=== PATIENT | female | born 1985 | race Caucasian/White ===

== ENCOUNTER 2024-01-06 16:33 | Emergency (ER) | payer OTHER, SELFPAY ==
[2024-01-06 16:35] VITALS: BP 128/108
--- NOTE | 2024-01-06 18:43 | ED.GENMED ---
History of Present Illness
General
Chief Complaint: Skin Problem
Source: patient
Exam Limitations: none
Time Seen by Provider: 01/06/24 18:28
Travel History
Have you had any contact with someone who has COVID-19?: No
Do you have any symptoms of coronavirus? Fever > 100 degrees, chills, cough, shortness of breath, sore throat, loss of taste or smell, muscle aches, or headache?: No
History of Present Illness
History of Present Illness:
38-year-old female presents complaining of 3 to 4 days worth of worsening redness swelling and pain to the anterior abdominal wall. No associated fevers. She notes chills however. She also notes redness and swelling to the right posterior thigh.
She has a remote history of having an abscess. She was initially seen at the urgent care and sent here for further evaluation. She states since waiting here the abscess on the abdominal wall drain and noticed some pus and blood come out. She
still notes diffuse abdominal pain. No chest pain or shortness of breath. No other complaints at this time
Past History
Past History
ED Past Medical History: Other (Chronic pain management for migraines, Kidney stones); Negative Asthma, HTN, Hypercholesterolemia or NIDDM
ED Past Surgical History: Cholecystectomy, and Orthopedic
Social History
Tobacco: Smoker
Alcohol: Occasional
Personal: Single
Living: with family
Employment: Employed (At [employer])
Family History
Family History: Negative Diabetes, Hypertension or CAD
Phy Exam
Physical Exam
Physical Exam:
General: Well-appearing female no acute respiratory distress
HEENT: Normocephalic atraumatic
Heart: Regular rate and rhythm no murmurs
Lungs: Clear to auscultation bilaterally no wheezes
Abdomen diffusely tender mildly distended there is more localized erythema showings and induration noted just inferior to the umbilicus that spreads laterally about 6 cm in either direction. There is purulent drainage noted from this area.
Skin: Induration noted to the right posterior thigh without fluctuance or drainage
Course
Orders/Labs/Results
Orders:
Orders
01/06/24 18:39
Ketorolac [Toradol] 30 mg IV NOW STA
01/06/24 18:40
Test Result ONCE
01/06/24 18:43
CT Abd/pelvis W Iv Cont Urgent
Comment:
Reason For Exam: abscess in abdominal wall, eval for deeper infecti
01/06/24 18:51
Complete Blood Count/With Diff Urgent
Comprehensive Metabolic Panel Urgent
HCG, Serum Qualitative Screen Urgent
Urinalysis Reflex To Culture Urgent
Date Specimen was Collected: 01/06/24
Time Specimen was Collected: 18:48
Urine Microscopic Reflex Cult Urgent
Urine Culture Urgent
JOSEP Source: U
Specimen Description:
Date Specimen was Collected: 01/06/24
Time Specimen was Collected: 18:48
01/06/24 20:30
Sulfamethox./Trimethoprim Ds [Bactrim Ds 800 mg/160 mg] 1 tablet PO NOW STA
Abnormal Lab Results
01/06/24
18:51
MCH 31.4 H pg
(27.0-31.0)
Absolute Monos (auto) 0.7 H 10^3/uL
(0.1-0.6)
Lymphocytes % 19.8 L %
(20.5-51.1)
Alkaline Phosphatase 135 H U/L
(38-126)
Urine Ketones Trace A
(Negative)
Ur Occult Blood Reflex Trace A
(Negative)
Urine Nitrite (Reflex) Positive A
(Negative)
Leukocyte Esterase Rfl 1+ A
(Negative)
Urine WBC (Reflex) 30-40 A /HPF
(0-5)
Urine Bacteria (Reflex) Many A
(Negative)
01/06/24 18:51
01/06/24 18:51
Vital Signs
Initial and Last Documented VS:
Initial Vital Signs
Temp Pulse Resp BP Pulse Ox
98.1 F 129 20 128/108 99
01/06/24 16:35 01/06/24 16:35 01/06/24 16:35 01/06/24 16:35 01/06/24 16:35
Last Documented Vital Signs
Temp Pulse Resp BP Pulse Ox
98.1 F 109 16 114/82 99
01/06/24 16:35 01/06/24 18:58 01/06/24 18:58 01/06/24 18:58 01/06/24 18:58
MDM/Problems Addressed
Differential Diagnosis Includes:
Abdominal wall abscess. Sent in by urgent care to evaluate for deeper infection. Consider possible fistula or deeper abscess given diffuse abdominal tenderness. Will check labs. CT pending
*Critical Care Note
Total Time (30-74mins, 75-104mins- exclusive of procedures): Not Applicable
Update Note
Update Note:
I was able to express a large amount of purulent fluid from the area of fluctuance inferior to the umbilicus. There is significant purulence followed by just a bloody return however the patient remained tender diffusely about the abdomen.
CT demonstrates edema within the skin but no drainable fluid collection. No deep space infection. Suspect abscess that was drained. Will start on Bactrim. Lab work reviewed and otherwise negative. Question positive UTI on urinalysis however
this will be covered with Bactrim as well
ED Attending Note
-
Portions of this chart may have been created with voice recognition software.� Occasional wrong word or��sound alike� substitutions may have occurred due to the inherent limitations of voice recognition software.
Discharge Plan
Departure
Patient Disposition: Home (Routine Discharge)
Date of Disposition: 01/06/24
Time of Disposition: 20:32
Patient with high blood pressure during this ER visit?: No
Discharge Problem:
Abscess
Instructions: Skin Abscess
Prescriptions:
New
sulfamethoxazole-trimethoprim [Bactrim DS] 800-160 mg tablet
1 tab PO BID Qty: 14 0RF
No Action
Aimovig Autoinjector
140 mg SC
Rx Instructions:
Q28 days
gabapentin 600 mg Tablet
600 mg PO TID
promethazine [Phenergan] 12.5 mg Tablet
12.5 mg PO Q8 PRN (Reason: Nausea)
Lexapro
20 mg PO DAILY
valacyclovir [Valtrex] 500 mg tablet
1,000 mg PO TID 7 Days Qty: 42 0RF
diclofenac sodium 75 mg tablet,delayed release (DR/EC)
75 mg PO BID Qty: 10 0RF
oxycodone-acetaminophen [Percocet] 5-325 mg tablet
1 tab PO Q4HPRN PRN (Reason: pain) Qty: 7 0RF
Referrals:
UNKNOWN - PT DOES,NOT KNOW [Family Provider] -
Activity Restrictions/Additional Instructions:
Continue with warm compresses. Continue with Tylenol and ibuprofen for pain. Use Bactrim as directed. Return for worsening symptoms otherwise follow-up with family doctor
Interventions
Interventions:
*Risk Screen - Suicide Last Done: 01/06/24 19:01
*General Assessment Last Done: 01/06/24 19:01
*Neglect/Abuse Screening Last Done: 01/06/24 19:01
*ED COVID-19 Vaccine History Last Done: 01/06/24 16:35
[2024-01-06] MEDS: TORADOL 30 MG IV (18:55)
[2024-01-06 18:58] VITALS: BP 114/82
[2024-01-06 19:05] LABS: % Basophils 0.6 % (0-2); % Eosinophils 1.6 % (0-6); % Immature Granulocytes 0.3 % (0-0.5); % Lymphocytes 19.8 % (20.5-51.1); % Monocytes 7.7 % (1.7-9.3); Absolute Basophils 0.1 10^3/uL (0-0.2); Absolute Eosinophils 0.2 10^3/uL (0-0.7); Absolute Lymphocytes 1.9 10^3/uL (1.2-3.4); Absolute Monocytes 0.7 10^3/uL (0.1-0.6); Absolute Neutrophils 6.5 10^3/uL (1.4-6.5); Hematocrit 37.8 % (37.0-47.0); Hemoglobin 13.2 g/dL (12.0-16.0); Mean Corp Hgb Conc. 34.9 g/dL (33.0-37.0); Mean Corpuscular Hgb 31.4 pg (27.0-31.0); Nucleated Red Blood Cells % 0 %; Platelet Count 262 10^3/uL (130-400); White Blood Cell Count 9.3 10^3/uL (4.8-10.8)
[2024-01-06 19:14] LABS: Urine Albumin Trace (Neg - Trace); Urine Bilirubin Negative (Negative); Urine Character Slightly Cloudy (Clear); Urine Color Yellow; Urine Glucose Negative (Negative); Urine Ketone Trace (Negative); Urine Leukocyte 1+ (Negative); Urine Nitrite Positive (Negative); Urine Occult Blood Trace (Negative); Urine Specific Gravity 1.025 (<1.030); Urine Urobilinogen Negative (Neg - 1+)
[2024-01-06 19:23] LABS: Urine Bacteria Many (Negative); Urine Red Blood Cell 0-2 /HPF (0-2); Urine White Cell 30-40 /HPF (0-5)
[2024-01-06 19:29] LABS: ALT (SGPT) 26 U/L (0-35); AST (SGOT) 28 U/L (14-36); Albumin 4.3 g/dl (3.5-5.0); Alkaline Phosphatase 135 U/L (38-126); Blood Urea Nitrogen 12 mg/dl (7-17); Calcium 8.9 mg/dl (8.4-10.2); Carbon Dioxide 25 mmol/L (22-30); Chloride 102 mmol/L (98-107); Glucose 80 mg/dl (70-99); Potassium 4.2 mmol/L (3.5-5.1); Sodium 136 mmol/L (135-145); Total Bilirubin 0.7 mg/dl (0.2-1.3); Total Protein 7.3 g/dl (6.3-8.2); eGFR > 60.00
[2024-01-06 19:39] LABS: HCG, Serum Qualitative Screen Negative
[2024-01-06] MEDS: BACTRIM DS 800 MG/160 MG 1 TABLET PO (20:58)
== END 2024-01-06 21:08 | disposition home or self-care (01) ==
LOC: EMR 16:33
PROVIDERS: Physician Assistant; EMERGENCY PHYSICIAN Emergency Medicine
DX: L02.211 Cutaneous abscess of abdominal wall (principal); F17.200 Nicotine dependence, unspecified, uncomplicated
CPT/HCPCS: 99285; 96374; 74177; 80053; 81003; 81015; 84703; 85025; 87077; 87086; 87186; Q9967

== ENCOUNTER → 2024-05-07 09:03 | Outpatient (REF) | payer OTHER, SELFPAY | LOC: PNTC 09:03 | PROVIDERS: ATTENDING PHYSICIAN Obstetrics & Gynecology | DX: O09.522 Supervision of elderly multigravida, second trimester (principal) | CPT/HCPCS: 76805 ==

== ENCOUNTER → 2024-06-04 13:23 | Outpatient (REF) | payer OTHER, SELFPAY | LOC: PNTC 13:23 | PROVIDERS: ATTENDING PHYSICIAN Obstetrics & Gynecology | DX: O09.529 Supervision of elderly multigravida, unspecified trimester (principal) | CPT/HCPCS: 76811 ==

== ENCOUNTER 2024-07-11 10:14 | Emergency (ER) | payer OTHER, SELFPAY ==
[2024-07-11 10:26] VITALS: BP 118/74
--- NOTE | 2024-07-11 10:35 | ED.GENMED ---
History of Present Illness
<Yvrose Norwood PA-C - Last Filed: 07/11/24 17:50>
General
Chief Complaint: Abdominal Symptoms
Source: patient
Exam Limitations: none
Time Seen by Provider: 07/11/24 10:35
Nursing documentation reviewed up to this point in time: agreed with
History of Present Illness
History of Present Illness:
38-year-old G2, P1 female with a past medical history of chronic bronchitis, past cholecystectomy presenting to the emergency department today with right upper quadrant abdominal pain. She is 25 weeks 6 days . She states that this pains
feels similar to the pain she has had a few weeks ago when she was hospitalized at [place]. Patient was admitted for right upper quadrant pain and she was found to have hepatosplenomegaly with apparently 'fluid around the liver' but she had
normal LFTs at the time. Patient states that they told her at the time no something to worry about and she was discharged. Patient states that this has been unremarkable thus far until she had that pain. Patient feels like this started
with her abdomen being tight and then progressed to pain. She also states that the pain radiates into her right scapula. She has occasional chest pain at times. She denies any dizziness or syncopal episodes. She denies any vaginal bleeding
vaginal discharge. She states that her previous was complicated by breech presentation but otherwise was unremarkable.
Past History
<Yvrose Norwood PA-C - Last Filed: 07/11/24 17:50>
Past History
ED Past Medical History: Other (Chronic pain management for migraines, Kidney stones); Negative Asthma, HTN, Hypercholesterolemia or NIDDM
ED Past Surgical History: Cholecystectomy, and Orthopedic
Social History
Tobacco: Smoker
Alcohol: Occasional
Personal: Single
Living: with family
Employment: Employed (At [employer])
Family History
Family History: Negative Diabetes, Hypertension or CAD
Review of Systems
<VEE Valdez Last Filed: 07/11/24 17:50>
Review of Systems
All Other Systems: ROS reviewed and negative except as documented in HPI and ROS
Phy Exam
<Yvrose Norwood PA-C - Last Filed: 07/11/24 17:50>
Physical Exam
Physical Exam:
General: Patient is well appearing and in no acute distress; non-toxic
Skin: Warm and dry, no rashes or lesions
Head: Normocephalic, atraumatic
Eyes: Sclera non-icteric. EOMs intact. PERRLA.
Cardiac: Regular rate and rhythm, no murmurs
Peripheral Vascular: No lower extremity swelling or edema
Pulm: Normal respiratory effort, no wheezes, rales, rhonchi
Abdomen: Gravid uterus. Distended abdomen. Right side abdominal tenderness to palpation.
Neuro: CN II-XII intact, no focal neurologic deficits.
Psychiatric: Appropriate mood and affect.
Course
<Yvrose Norwood PA-C - Last Filed: 07/11/24 17:50>
Orders/Labs/Results
Orders:
Orders
07/11/24 10:47
US Abdomen Complete/Upper Urgent
Comment:
Reason For Exam: right upper quadrant pain
US 2nd/3rd Trimester Urgent
Comment:
Reason For Exam: abdominal pain
07/11/24 10:49
Electrocardiogram (*1) Urgent
Reason for Study: Chest Pain
EKG- Treatment ONCE
07/11/24 10:51
Complete Blood Count/With Diff Urgent
Comprehensive Metabolic Panel Urgent
Lipase Urgent
Troponin I Urgent
07/11/24 10:58
Acetaminophen [Tylenol] 650 mg PO NOW STA
07/11/24 11:00
Heart Tones ONCE
07/11/24 12:06
Non-Stress Test- LDRP As Directed
Frequency: Once
Abnormal Lab Results
07/11/24
10:51
RBC 3.85 L 10^6/uL
(4.20-5.40)
Hct 34.3 L %
(37.0-47.0)
MCH 31.7 H pg
(27.0-31.0)
MPV 10.7 H fL
(7.4-10.4)
Abs Immat Gran (auto) 0.1 H 10^3/uL
(0-0.05)
Immature Gran % 0.6 H %
(0-0.5)
Lymphocytes % 17.3 L %
(20.5-51.1)
Carbon Dioxide 17 L mmol/L
(22-30)
Creatinine 0.5 L mg/dL
(0.6-1.0)
Alkaline Phosphatase 146 H U/L
(38-126)
07/11/24 10:51
07/11/24 10:51
Vital Signs
Initial and Last Documented VS:
Initial Vital Signs
Temp Pulse Resp BP Pulse Ox
98.4 F 98 24 118/74 98
07/11/24 10:26 07/11/24 10:26 07/11/24 10:26 07/11/24 10:26 07/11/24 10:26
Last Documented Vital Signs
Temp Pulse Resp BP Pulse Ox
98.4 F 74 16 148/88 98
07/11/24 10:26 07/11/24 14:07 07/11/24 14:07 07/11/24 14:07 07/11/24 14:07
Lalolt;Matteo Neely, DO - Last Filed: 07/11/24 11:06>
Orders/Labs/Results
Orders:
Orders
07/11/24 10:47
US Abdomen Complete/Upper Urgent
Comment:
Reason For Exam: right upper quadrant pain
US 2nd/3rd Trimester Urgent
Comment:
Reason For Exam: abdominal pain
07/11/24 10:49
Electrocardiogram (*1) Urgent
Reason for Study: Chest Pain
EKG- Treatment ONCE
07/11/24 10:51
Complete Blood Count/With Diff Urgent
Comprehensive Metabolic Panel Urgent
Lipase Urgent
Troponin I Urgent
07/11/24 10:58
Acetaminophen [Tylenol] 650 mg PO NOW STA
07/11/24 11:00
Heart Tones ONCE
07/11/24 12:06
Non-Stress Test- LDRP As Directed
Frequency: Once
Abnormal Lab Results
07/11/24
10:51
RBC 3.85 L 10^6/uL
(4.20-5.40)
Hct 34.3 L %
(37.0-47.0)
MCH 31.7 H pg
(27.0-31.0)
MPV 10.7 H fL
(7.4-10.4)
Abs Immat Gran (auto) 0.1 H 10^3/uL
(0-0.05)
Immature Gran % 0.6 H %
(0-0.5)
Lymphocytes % 17.3 L %
(20.5-51.1)
Carbon Dioxide 17 L mmol/L
(22-30)
Creatinine 0.5 L mg/dL
(0.6-1.0)
Alkaline Phosphatase 146 H U/L
(38-126)
07/11/24 10:51
07/11/24 10:51
Vital Signs
Initial and Last Documented VS:
Initial Vital Signs
Temp Pulse Resp BP Pulse Ox
98.4 F 98 24 118/74 98
07/11/24 10:26 07/11/24 10:26 07/11/24 10:26 07/11/24 10:26 07/11/24 10:26
Last Documented Vital Signs
Temp Pulse Resp BP Pulse Ox
98.4 F 74 16 148/88 98
07/11/24 10:26 07/11/24 14:07 07/11/24 14:07 07/11/24 14:07 07/11/24 14:07
Lalolt;Yvrose Norwood PA-C - Last Filed: 07/11/24 17:50>
MDM/Problems Addressed
Differential Diagnosis Includes:
Differentials include cholelithiasis of , liver failure with ascites, hepatosplenomegaly, gastroenteritis, physiologic changes of
MDM/Problems Addressed:
38-year-old G2, P1 female with a past medical history of chronic bronchitis, past cholecystectomy presenting to the emergency department today with right upper quadrant abdominal pain. She is 25 weeks 6 days . She states that this pains
feels similar to the pain she has had a few weeks ago when she was hospitalized at [place]. I had patient's previous records from [place] hospitalization faxed here to the emergency department. On review of these records, she had abnormal
imaging of the liver on renal ultrasound that could possibly reflect cirrhosis and she had a indeterminant 2.1 cm echogenic structure within the liver in which they recommended follow-up with nonemergent CT or MRI, she is told to follow-up with
gastroenterology but she was not able to get an appointment time. They did recommend short-term follow-up with ultrasound. They also considered biliary colic from retained CBD stones however MRCP was pursued which was negative for CBD stone. Upon
discharge, her pain was attributed to musculoskeletal discomfort, her LFTs were normal at the time. Here in the emergency department, she is well-appearing does have abdominal pain to palpation but here she has normal ultrasound abdomen with no
ascites, does show hepatosplenomegaly again but really nothing unchanged from prior hospitalization. Her LFTs are normal. Patient also had normal obstetric ultrasound and was evaluated emergency department by Dr. Tierra her OB on-call, also had
nonstress testing done which was normal. Patient stable for discharge, etiology of her right-sided pain remains unclear at this time, recommended gastroenterology follow-up, provided referral, return precautions discussed.
Chronic conditions affecting care:
Previous cholecystectomy, COPD
Acute Exacerbation and/or Progression of Chronic Illness:
n/a
<Yvrose Norwood PA-C - Last Filed: 07/11/24 17:50>
*Pulse Oximetry
Patient hypoxic: no
*Critical Care Note
Total Time (30-74mins, 75-104mins- exclusive of procedures): Not Applicable
Data Reviewed
Review of Other/Old Records Reveals: Records (Reviewed ER physician documentation from 01/06/2024.)
Source: patient and records
Prescriptions/Medications Considered But Not Given:
n/a
Further Testing Considered But Not Given:
n/a
<Yvrose Norwood PA-C - Last Filed: 07/11/24 17:50>
Patient Management
Escalation/DeEscalation of care consider admission/obs:
Admit not indicated, patient stable for discharge
ED Attending Note
<VEE Valdez Last Filed: 07/11/24 17:50>
-
Portions of this chart may have been created with voice recognition software.� Occasional wrong word or��sound alike� substitutions may have occurred due to the inherent limitations of voice recognition software.
<Matteo Neely DO - Last Filed: 07/11/24 11:06>
ED Attending Note
Patient seen and examined by attending physician: Yes
I performed the substantive portion of visit, reviewed & personally made and approve the management plan that is documented in note by myself or BK.: Yes
I performed a history and physical exam of patient and discussed management with resident, I reviewed resident's note and agree with documented findings and plan of care.: Yes
ED Attending Note:
I evaluated the patient at bedside. The patient is 25 weeks 6 days . She has increasing pain in the upper abdomen along with concerns for increasing abdominal girth out of proportion to her status. This pain radiates to the
right shoulder. I reviewed the MRI report that was obtained from 1 month ago with similar symptoms.
Discharge Plan
Departure
Patient Disposition: Home (Routine Discharge)
Date of Disposition: 07/11/24
Time of Disposition: 13:40
Patient with high blood pressure during this ER visit?: No
Condition: Good
Discharge Problem:
Abdominal pain
Instructions: Stomach Pain Later in
Prescriptions:
No Action
Aimovig Autoinjector
140 mg SC
Rx Instructions:
Q28 days
gabapentin 600 mg Tablet
600 mg PO TID
promethazine [Phenergan] 12.5 mg Tablet
12.5 mg PO Q8 PRN (Reason: Nausea)
Lexapro
20 mg PO DAILY
valacyclovir [Valtrex] 500 mg tablet
1,000 mg PO TID 7 Days Qty: 42 0RF
diclofenac sodium 75 mg tablet,delayed release (DR/EC)
75 mg PO BID Qty: 10 0RF
oxycodone-acetaminophen [Percocet] 5-325 mg tablet
1 tab PO Q4HPRN PRN (Reason: pain) Qty: 7 0RF
sulfamethoxazole-trimethoprim [Bactrim DS] 800-160 mg tablet
1 tab PO BID Qty: 14 0RF
Referrals:
Jordan Burden MD [Family Provider] -
Lani Rodríguez DO [Active] - Call in 1-3 days for appt
Activity Restrictions/Additional Instructions:
When you were at [place], you had an ultrasound of the liver that could potentially suggest cirrhosis or other liver mass. It is recommended that you have nonurgent follow-up with a CAT scan or MRI. Please call the attached number to schedule an
appointment with gastroenterology.
Please follow-up with Dr. Mayorga as needed.
Please return emergency department should you experience any acute worsening of your symptoms, chest pain, dizziness, headache, visual changes, light headedness, seizure-like activity, burning with urination, hematuria, or any other signs or
symptoms concerning to you.
Interventions
Interventions:
*Risk Screen - Suicide Last Done: 07/11/24 12:42
*General Assessment Last Done: 07/11/24 14:07
*Neglect/Abuse Screening Last Done: 07/11/24 12:42
ED- Fall Risk Assessment Last Done: 07/11/24 14:07
*ED COVID-19 Vaccine History Last Done: 07/11/24 14:12
*Nursing Disposition Last Done: 07/11/24 14:07
IF-Wwwiqu-Rwtydseomn Assessment Last Done: 07/11/24 10:46
Discharge Date and Time
Discharge Date/Time: 07/11/24 14:12
Print Language: MALIAN
[2024-07-11 10:39] VITALS: BMI 31.3
[2024-07-11 11:07] LABS: % Basophils 0.4 % (0-2); % Immature Granulocytes 0.6 % (0-0.5); % Lymphocytes 17.3 % (20.5-51.1); % Monocytes 5.7 % (1.7-9.3); Absolute Eosinophils 0.1 10^3/uL (0-0.7); Absolute Immature Granulocytes 0.1 10^3/uL (0-0.05); Absolute Lymphocytes 1.4 10^3/uL (1.2-3.4); Absolute Monocytes 0.5 10^3/uL (0.1-0.6); Absolute Neutrophils 6.1 10^3/uL (1.4-6.5); Hematocrit 34.3 % (37.0-47.0); Hemoglobin 12.2 g/dL (12.0-16.0); Mean Corp Hgb Conc. 35.6 g/dL (33.0-37.0); Mean Corpuscular Hgb 31.7 pg (27.0-31.0); Mean Corpuscular Volume 89.1 fL (81.0-99.0); Mean Platelet Volume 10.7 fL (7.4-10.4); Nucleated Red Blood Cells % 0 %; Platelet Count 214 10^3/uL (130-400); Red Blood Cell Count 3.85 10^6/uL (4.20-5.40); Red Cell Dist. Width 13.1 % (11.5-14.5); White Blood Cell Count 8.1 10^3/uL (4.8-10.8)
[2024-07-11 11:21] LABS: ALT (SGPT) 20 U/L (0-35); AST (SGOT) 22 U/L (14-36); Albumin 3.9 g/dl (3.5-5.0); Alkaline Phosphatase 146 U/L (38-126); Blood Urea Nitrogen 7 mg/dl (7-17); Calcium 9.2 mg/dl (8.4-10.2); Carbon Dioxide 17 mmol/L (22-30); Chloride 107 mmol/L (98-107); Estimated Creatinine Clearance 120 ml/min; Glucose 91 mg/dl (70-99); Lipase 69 U/L (23-300); Potassium 4.2 mmol/L (3.5-5.1); Sodium 137 mmol/L (135-145); Total Bilirubin 0.9 mg/dl (0.2-1.3); Total Protein 6.5 g/dl (6.3-8.2); eGFR > 60.00
[2024-07-11 11:30] LABS: Troponin I < 0.012 ng/ml
--- NOTE | 2024-07-11 11:31 | PTCARENOTE ---
Pt placed on monitoring per Dr Mayorga. Pt states she does not feel any contractions, leakage of fluid or bleeding. Pt states she has RUQ pain that radiates to her back and left shoulder. No contractions noted on monitor or palpated.
hearts 135 with accelerations and moderate variability. Will continue to monitor pt.
[2024-07-11] MEDS: TYLENOL 650 MG PO (11:35)
--- NOTE | 2024-07-11 12:59 | PTCARENOTE ---
Dr Redmond reviewed tracing and discharged pt off monitor. Informed ER nurse that monitoring was discontinued.
--- NOTE | 2024-07-11 13:33 | CS.OBGYN ---
Consult Summary - [employer]
-
Consult:
HPI: Patient is a 38yo @25.6 (SUHAIL 10[birth year]) who presents with complaints of RUQ pain. Per patient, she has had this pain for a few weeks and was previously hospitalized at [facility] for the pain. She reports that she had an enlarged liver and
ascites, but per report from [facility] she had a liver nodule and pain was likely musculoskeletal. She says this morning she had worsening of the pain and tightness of her upper abdomen. The pain radiates to her back and shoulder. She has no OB
complaints. She denies contractions, vaginal bleeding, or leakage of fluid. +FM.
complications:
- Limited care- she has only had 2 visits this
- Transfer of care from [place]- no records available for review
- History PLTCS for breech presentation and PROM, desires RCS
- FOB is incarcerated
- Pt denies drug use, but UDS positive for amphetamines in [facility] records
- Tobacco use, currently vapes twice per week
- Advanced maternal age
- Brain cyst per patient- previously followed w/ neurology, but has not had recent scans because she didn't want them while
OBHx:
G1: 2016, PLTCS breech
G2: current
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
PMH: migraines, brain cyst
Meds: none
All: PCN, cephalosporins, reglan, compazine
Surghx: CSx1, lap dennis, knee surgery
Socialhx: history of drug use (pt denies during this , but UDS at [facility] pos amphetamines), vapes twice per week, denies current etoh use
Famhx: non-contributory
Objective:
VS: BP: 118/74, HR 74
General: tearful, otherwise well appearing
Abd: tenderness to palpation of upper abdomen, worse on RUQ, gravid
Cardio: RRR
Pulm: no increased work of breathing
Psych: tearful
FHT: 135 baseline/moderate variability/+accelerations/no decelerations
Wray: no ctx
A/P:
Patient is a 38yo @25.6 w/ complaints of upper abdominal pain
- No OB complaints
- NST reactive and reassuring. Greater than 20 minutes reviewed.
- BP 118/74, LFTs and CBC wnl. No concern for preeclampsia.
- No contractions on toco. No concern for labor
- US revealed nodular liver suspicious for underlying cirrhosis. Patient should follow up with GI outpatient
- Patient is stable for discharge home from an OB perspective. She has follow up scheduled in the office.
[2024-07-11 14:07] VITALS: BP 148/88
== END 2024-07-11 14:12 | disposition home or self-care (01) ==
LOC: EMR 10:14
PROVIDERS: Physician Assistant; EMERGENCY PHYSICIAN Emergency Medicine; FAMILY PHYSICIAN Family Medicine; OTHER PHYSICIAN Student in an Organized Health Care Education/Training Program
DX: O26.892 Other specified pregnancy related conditions, second trimester (principal); R10.11 Right upper quadrant pain; Z3A.25 25 weeks gestation of pregnancy
CPT/HCPCS: 99285; 76700; 76805; 80053; 83690; 84484; 85025; 93005

== ENCOUNTER → 2024-07-16 13:23 | Outpatient (REF) | payer OTHER, SELFPAY | LOC: PNTC 13:23 | PROVIDERS: ATTENDING PHYSICIAN Student in an Organized Health Care Education/Training Program | DX: O09.519 Supervision of elderly primigravida, unspecified trimester (principal) | CPT/HCPCS: 76816 ==

== ENCOUNTER → 2024-08-20 13:47 | Outpatient (REF) | payer OTHER, SELFPAY | LOC: PNTC 13:47 | PROVIDERS: ATTENDING PHYSICIAN Obstetrics & Gynecology | DX: O09.519 Supervision of elderly primigravida, unspecified trimester (principal) | CPT/HCPCS: 76816 ==

== ENCOUNTER 2024-08-24 17:04 | Observation (INO) | payer OTHER, SELFPAY ==
[2024-08-24 17:26] VITALS: BP 130/75; BMI 31.2
[2024-08-24 20:40] LABS: Hematocrit 38.7 % (37.0-47.0); Hemoglobin 13.5 g/dL (12.0-16.0); Mean Corp Hgb Conc. 34.9 g/dL (33.0-37.0); Mean Corpuscular Hgb 31.5 pg (27.0-31.0); Mean Corpuscular Volume 90.2 fL (81.0-99.0); Mean Platelet Volume 10.4 fL (7.4-10.4); Platelet Count 341 10^3/uL (130-400); Red Blood Cell Count 4.29 10^6/uL (4.20-5.40); Red Cell Dist. Width 12.6 % (11.5-14.5); White Blood Cell Count 9.8 10^3/uL (4.8-10.8)
[2024-08-24 20:56] LABS: ALT (SGPT) 48 U/L (0-35); AST (SGOT) 37 U/L (14-36); Albumin 3.4 g/dl (3.5-5.0); Alkaline Phosphatase 175 U/L (38-126); Blood Urea Nitrogen 11 mg/dl (7-17); Calcium 9.5 mg/dl (8.4-10.2); Carbon Dioxide 19 mmol/L (22-30); Chloride 106 mmol/L (98-107); Estimated Creatinine Clearance 120 ml/min; Glucose 79 mg/dl (70-99); Potassium 4.4 mmol/L (3.5-5.1); Sodium 136 mmol/L (135-145); Total Bilirubin 0.7 mg/dl (0.2-1.3); Total Protein 6.2 g/dl (6.3-8.2); eGFR > 60.00
[2024-08-24] MEDS: ACTIGALL 300 MG PO (21:54)
[2024-08-25 06:47] LABS: ALT (SGPT) 43 U/L (0-35); AST (SGOT) 29 U/L (14-36)
[2024-08-25] MEDS: ACTIGALL 300 MG PO (08:28)
[2024-08-26 18:59] LABS: Hepatitis B Surface Antigen Negative (Negative)
[2024-08-26 19:02] LABS: Rubella Positive
[2024-08-26 19:17] LABS: Hepatitis C Antibody Negative (Negative)
[2024-08-27 00:15] LABS: Bile Acids (Cholylglycine) 11 umol/L (0-10)
[2024-08-27 14:59] LABS: HIV Combo Negative (Negative)
== END 2024-08-25 10:33 | disposition home or self-care (01) ==
LOC: LDRP 17:04
PROVIDERS: ADMITTING PHYSICIAN Obstetrics & Gynecology
DX: R10.11 Right upper quadrant pain (principal); G43.909 Migraine, unspecified, not intractable, without status migrainosus; O99.013 Anemia complicating pregnancy, third trimester; D64.9 Anemia, unspecified; Z3A.32 32 weeks gestation of pregnancy; R16.0 Hepatomegaly, not elsewhere classified; O99.333 Smoking (tobacco) complicating pregnancy, third trimester; F17.290 Nicotine dependence, other tobacco product, uncomplicated; O99.343 Other mental disorders complicating pregnancy, third trimester; F41.9 Anxiety disorder, unspecified; F19.11 Other psychoactive substance abuse, in remission; F32.A Depression, unspecified; D33.2 Benign neoplasm of brain, unspecified; Z63.0 Problems in relationship with spouse or partner; Z63.5 Disruption of family by separation and divorce; Z88.1 Allergy status to other antibiotic agents; Z88.0 Allergy status to penicillin; Z88.8 Allergy status to other drugs, medicaments and biological substances; Z91.410 Personal history of adult physical and sexual abuse; Z90.49 Acquired absence of other specified parts of digestive tract
CPT/HCPCS: 80053; 82239; 84450; 84460; 85027; 86762; 86803; 86850; 86900; 86901; 87340; 87389; 87491; 87591; G0378

== ENCOUNTER 2024-08-27 06:37 | Observation (INO) | payer OTHER, SELFPAY ==
[2024-08-27 06:46] VITALS: BP 114/73; BMI 33.1
[2024-08-27] MEDS: LR 500 IV (07:00)
[2024-08-27] MEDS: LR IV ×2 (07:18→07:20)
[2024-08-27] MEDS: ZOFRAN 4 MG IV (07:20)
[2024-08-27 07:26] LABS: % Basophils 0.5 % (0-2); % Immature Granulocytes 0.8 % (0-0.5); % Lymphocytes 8.3 % (20.5-51.1); % Neutrophils 82.4 % (42.2-75.2); Absolute Basophils 0.1 10^3/uL (0-0.2); Absolute Eosinophils 0.2 10^3/uL (0-0.7); Absolute Immature Granulocytes 0.1 10^3/uL (0-0.05); Absolute Lymphocytes 1.4 10^3/uL (1.2-3.4); Absolute Monocytes 1.2 10^3/uL (0.1-0.6); Absolute Neutrophils 13.5 10^3/uL (1.4-6.5); Hematocrit 36.5 % (37.0-47.0); Hemoglobin 12.8 g/dL (12.0-16.0); Mean Corp Hgb Conc. 35.1 g/dL (33.0-37.0); Mean Corpuscular Hgb 30.5 pg (27.0-31.0); Mean Corpuscular Volume 86.9 fL (81.0-99.0); Mean Platelet Volume 10.7 fL (7.4-10.4); Nucleated Red Blood Cells % 0 %; Platelet Count 335 10^3/uL (130-400); Red Cell Dist. Width 12.7 % (11.5-14.5); White Blood Cell Count 16.4 10^3/uL (4.8-10.8)
[2024-08-27] MEDS: MORPHINE SULFATE 2 MG IV ×4 (07:27→20:05)
[2024-08-27 07:34] LABS: ALT (SGPT) 40 U/L (0-35); AST (SGOT) 29 U/L (14-36); Albumin 3.8 g/dl (3.5-5.0); Alkaline Phosphatase 199 U/L (38-126); Blood Urea Nitrogen 14 mg/dl (7-17); Carbon Dioxide 19 mmol/L (22-30); Chloride 106 mmol/L (98-107); Estimated Creatinine Clearance 124 ml/min; Glucose 109 mg/dl (70-99); Potassium 4.8 mmol/L (3.5-5.1); Sodium 139 mmol/L (135-145); Total Bilirubin 0.9 mg/dl (0.2-1.3); Total Protein 6.7 g/dl (6.3-8.2); eGFR > 60.00
[2024-08-27 07:49] LABS: Urine Albumin Trace (Neg - Trace); Urine Bilirubin Negative (Negative); Urine Character Slightly Cloudy (Clear); Urine Color Yellow; Urine Glucose Negative (Negative); Urine Ketone Negative (Negative); Urine Leukocyte Trace (Negative); Urine Nitrite Negative (Negative); Urine Occult Blood Negative (Negative); Urine Urobilinogen 1+ (Neg - 1+)
[2024-08-27 07:59] LABS: Urine Squamous Cell 0-2 /LPF (Few)
[2024-08-27 08:00] LABS: Urine Bacteria Few (Negative); Urine Red Blood Cell 0-2 /HPF (0-2)
[2024-08-27 08:15] LABS: Amphetamines Negative (Negative); Barbiturates Positive (Negative); Benzodiazepines Negative (Negative); Buprenorphine Negative (Negative); Cocaine Negative (Negative); Marijuana Negative (Negative); Methadone Negative (Negative); Methamphetamines Negative (Negative); Opiates Negative (Negative); Phencyclidine Negative (Negative); Tricyclic Antidepressants Negative (Negative)
[2024-08-27 09:29] LABS: Amylase 55 U/L (30-110); LDH 243 U/L (120-246); Lipase 107 U/L (23-300)
[2024-08-27] MEDS: LR 1000 IV ×2 (09:35→16:33)
[2024-08-27] MEDS: CELESTONE SOLUSPAN 2 MG IM (13:34)
[2024-08-27 15:54] LABS: Urine Protein 40 mg/dl (0-12)
[2024-08-27] MEDS: ACTIGALL 300 MG PO (21:56)
[2024-08-28] MEDS: MORPHINE SULFATE 2 MG IV ×4 (00:20→21:11)
[2024-08-28] MEDS: LR 1000 IV ×2 (00:52→09:24)
[2024-08-28 09:23] LABS: % Basophils 0.2 % (0-2); % Eosinophils 0.1 % (0-6); % Immature Granulocytes 1.4 % (0-0.5); % Monocytes 6.2 % (1.7-9.3); % Neutrophils 83.1 % (42.2-75.2); Absolute Immature Granulocytes 0.2 10^3/uL (0-0.05); Absolute Lymphocytes 1.1 10^3/uL (1.2-3.4); Absolute Monocytes 0.7 10^3/uL (0.1-0.6); Absolute Neutrophils 9.7 10^3/uL (1.4-6.5); Hematocrit 31.8 % (37.0-47.0); Hemoglobin 11.1 g/dL (12.0-16.0); Mean Corp Hgb Conc. 34.9 g/dL (33.0-37.0); Mean Corpuscular Hgb 31.5 pg (27.0-31.0); Mean Corpuscular Volume 90.3 fL (81.0-99.0); Mean Platelet Volume 10.6 fL (7.4-10.4); Nucleated Red Blood Cells % 0 %; Platelet Count 269 10^3/uL (130-400); Red Blood Cell Count 3.52 10^6/uL (4.20-5.40); Red Cell Dist. Width 12.8 % (11.5-14.5); White Blood Cell Count 11.6 10^3/uL (4.8-10.8)
[2024-08-28] MEDS: ACTIGALL 300 MG PO ×3 (09:24→21:11)
[2024-08-28] MEDS: ZOFRAN 4 MG IV (09:25)
[2024-08-28 09:37] LABS: APTT 29.2 Sec (23.4-35.0); INR 1.14; PT 15.1 Sec (11.4-14.6)
[2024-08-28 09:43] LABS: ALT (SGPT) 28 U/L (0-35); AST (SGOT) 19 U/L (14-36); Albumin 3.1 g/dl (3.5-5.0); Alkaline Phosphatase 160 U/L (38-126); Blood Urea Nitrogen 9 mg/dl (7-17); Carbon Dioxide 17 mmol/L (22-30); Chloride 104 mmol/L (98-107); Estimated Creatinine Clearance 124 ml/min; Glucose 182 mg/dl (70-99); Potassium 4.1 mmol/L (3.5-5.1); Sodium 135 mmol/L (135-145); Total Bilirubin 0.9 mg/dl (0.2-1.3); Total Protein 5.6 g/dl (6.3-8.2); eGFR > 60.00
[2024-08-28 10:08] LABS: Fibrinogen 603 MG/DL (199-459)
[2024-08-28 11:54] LABS: Protein/creatinine Ratio 0.4; Urine Protein 40 mg/dl
[2024-08-28] MEDS: CELESTONE SOLUSPAN 2 MG IM (13:33)
[2024-08-28] MEDS: PEPCID 20 MG PO (13:44)
[2024-08-28] MEDS: TUMS EX (EXTRA STRENGTH) CHEWABLE TABLET 600 MG PO (15:03)
[2024-08-28 15:10] LABS: Syphilis/T. pallidum Ab Reflex Negative (Negative)
[2024-08-28] MEDS: COLACE 100 MG PO (19:52)
[2024-08-29] MEDS: MORPHINE SULFATE 2 MG IV ×2 (01:32→08:41)
[2024-08-29 05:56] LABS: % Basophils 0.2 % (0-2); % Eosinophils 0.1 % (0-6); % Immature Granulocytes 1.7 % (0-0.5); % Lymphocytes 10.9 % (20.5-51.1); % Monocytes 7.9 % (1.7-9.3); % Neutrophils 79.2 % (42.2-75.2); Absolute Immature Granulocytes 0.2 10^3/uL (0-0.05); Absolute Lymphocytes 1.4 10^3/uL (1.2-3.4); Hematocrit 32.4 % (37.0-47.0); Hemoglobin 11.3 g/dL (12.0-16.0); Mean Corp Hgb Conc. 34.9 g/dL (33.0-37.0); Mean Corpuscular Hgb 31.5 pg (27.0-31.0); Mean Corpuscular Volume 90.3 fL (81.0-99.0); Mean Platelet Volume 10.8 fL (7.4-10.4); Nucleated Red Blood Cells % 0 %; Platelet Count 288 10^3/uL (130-400); Red Blood Cell Count 3.59 10^6/uL (4.20-5.40); Red Cell Dist. Width 12.7 % (11.5-14.5); White Blood Cell Count 12.6 10^3/uL (4.8-10.8)
[2024-08-29 06:00] LABS: APTT 27.6 Sec (23.4-35.0); Fibrinogen 600 MG/DL (199-459); INR 1.02; PT 13.9 Sec (11.4-14.6)
[2024-08-29 06:17] LABS: ALT (SGPT) 31 U/L (0-35); AST (SGOT) 21 U/L (14-36); Albumin 3.4 g/dl (3.5-5.0); Alkaline Phosphatase 169 U/L (38-126); Blood Urea Nitrogen 10 mg/dl (7-17); Carbon Dioxide 18 mmol/L (22-30); Chloride 104 mmol/L (98-107); Estimated Creatinine Clearance 124 ml/min; Glucose 103 mg/dl (70-99); Potassium 4.6 mmol/L (3.5-5.1); Sodium 137 mmol/L (135-145); Total Bilirubin 0.7 mg/dl (0.2-1.3); Total Protein 6.3 g/dl (6.3-8.2); eGFR > 60.00
[2024-08-29] MEDS: ACTIGALL 300 MG PO ×3 (08:37→21:47)
[2024-08-29] MEDS: ZOFRAN ODT (ORALLY DISINTEGRATING) 4 MG PO ×2 (08:37→20:07)
[2024-08-29] MEDS: PEPCID 20 MG PO (08:37)
[2024-08-29] MEDS: TUMS EX (EXTRA STRENGTH) CHEWABLE TABLET 600 MG PO ×2 (08:38→20:14)
[2024-08-29] MEDS: COLACE 100 MG PO ×2 (08:38→20:08)
[2024-08-29] MEDS: LIDOCAINE 4% PATCH 1 PATCH TOPICAL (10:11)
--- NOTE | 2024-08-29 11:29 | CM ---
Addendum entered by Cristy Jerez 08/29/24 11:44:
Pt reports she has family support and FOB support
Original Note:
32 weeks/cholecystitis
Met with pt at bedside
Pt reports she lives on the fl of her parents 2 story home; 6 steps to enter
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
Independent at baseline, drives, employed PT
DME - none
Denies home care in past
Will have ride at discharge
PCP -Jordan Burden
Pharm - [facility]
care - [facility]
Reports has an 8 yo daughter who lives with her father -'joint custody' per pt. Has had children and youth involvement in past. Did not endorse additional information
Discussed vaping use in - reports she has cut back. Offered assistance - declines
Discussed + tox screen for Barbiturates - pt reports she is not taking illicit drugs. States she was given medication at [place] [facility]. Made aware can assist with referral to [facility] if needed
Not current with [facility] - given information - aware of program
Discussed Maternal Child VN Program thru [facility] - receptive - will referr
CM available for discharge needs
[2024-08-29 13:36] LABS: 24 Hour Urine Total Volume 2700 ml
[2024-08-29 13:42] LABS: Urine Protein 31 mg/dl (0-12)
[2024-08-29] MEDS: TYLENOL 650 MG PO ×2 (14:50→20:07)
[2024-08-29] MEDS: ATARAX 25 MG PO (21:47)
[2024-08-30] MEDS: MORPHINE SULFATE 2 MG IV (02:17)
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
[2024-08-30] MEDS: ACTIGALL 300 MG PO (07:52)
[2024-08-30] MEDS: COLACE 100 MG PO (07:52)
[2024-08-30] MEDS: PEPCID 20 MG PO (07:52)
[2024-08-30] MEDS: TYLENOL 650 MG PO (09:27)
[2024-08-30] MEDS: LIDOCAINE 4% PATCH 1 PATCH TOPICAL (09:49)
[2024-08-30] MEDS: FLEXERIL 5 MG PO (10:47)
== END 2024-08-30 13:22 | disposition home or self-care (01) ==
LOC: LDRP 06:37
PROVIDERS: Obstetrics & Gynecology; ADMITTING PHYSICIAN Obstetrics & Gynecology; CONSULT PHYSICIAN Obstetrics & Gynecology Maternal & Fetal Medicine; CONSULT PHYSICIAN Student in an Organized Health Care Education/Training Program
DX: R11.2 Nausea with vomiting, unspecified (principal); O26.643 Intrahepatic cholestasis of pregnancy, third trimester; K83.1 Obstruction of bile duct; O26.613 Liver and biliary tract disorders in pregnancy, third trimester; K76.89 Other specified diseases of liver; K76.0 Fatty (change of) liver, not elsewhere classified; O32.1XX0 Maternal care for breech presentation, not applicable or unspecified; Z3A.32 32 weeks gestation of pregnancy; F19.11 Other psychoactive substance abuse, in remission; O26.893 Other specified pregnancy related conditions, third trimester; R10.11 Right upper quadrant pain; R74.8 Abnormal levels of other serum enzymes; M25.519 Pain in unspecified shoulder; O99.353 Diseases of the nervous system complicating pregnancy, third trimester; G89.29 Other chronic pain; G43.909 Migraine, unspecified, not intractable, without status migrainosus; D33.2 Benign neoplasm of brain, unspecified; N39.41 Urge incontinence; R16.2 Hepatomegaly with splenomegaly, not elsewhere classified; Z90.49 Acquired absence of other specified parts of digestive tract; Z91.410 Personal history of adult physical and sexual abuse; Z63.5 Disruption of family by separation and divorce; Z88.1 Allergy status to other antibiotic agents; Z88.0 Allergy status to penicillin; Z88.8 Allergy status to other drugs, medicaments and biological substances; Z87.442 Personal history of urinary calculi
CPT/HCPCS: 76700; 76815; 80053; 80306; 80345; 81003; 81015; 81050; 82150; 82570; 83615; 83690; 84156; 85025; 85384; 85460; 85610; 85730; 86780; 86850; 86900; 86901; 99406; G0378

== ENCOUNTER → 2024-09-03 15:14 | Outpatient (REF) | payer OTHER, SELFPAY | LOC: PNTC 15:14 | PROVIDERS: ATTENDING PHYSICIAN Obstetrics & Gynecology | DX: O26.643 Intrahepatic cholestasis of pregnancy, third trimester (principal) | CPT/HCPCS: 59025; 76815 ==

== ENCOUNTER → 2024-09-10 14:08 | Outpatient (REF) | payer OTHER, SELFPAY | LOC: PNTC 14:08 | PROVIDERS: ATTENDING PHYSICIAN Obstetrics & Gynecology | DX: O26.643 Intrahepatic cholestasis of pregnancy, third trimester (principal) | CPT/HCPCS: 59025; 76818 ==

== ENCOUNTER 2024-09-13 12:04 | Observation (INO) | payer OTHER, SELFPAY ==
[2024-09-13 12:45] LABS: % Basophils 0.7 % (0-2); % Eosinophils 1.4 % (0-6); % Immature Granulocytes 0.7 % (0-0.5); % Monocytes 8.4 % (1.7-9.3); % Neutrophils 65.8 % (42.2-75.2); Absolute Basophils 0.1 10^3/uL (0-0.2); Absolute Eosinophils 0.1 10^3/uL (0-0.7); Absolute Immature Granulocytes 0.1 10^3/uL (0-0.05); Absolute Lymphocytes 1.7 10^3/uL (1.2-3.4); Absolute Monocytes 0.6 10^3/uL (0.1-0.6); Absolute Neutrophils 4.8 10^3/uL (1.4-6.5); Hematocrit 37.2 % (37.0-47.0); Hemoglobin 12.8 g/dL (12.0-16.0); Mean Corp Hgb Conc. 34.4 g/dL (33.0-37.0); Mean Corpuscular Hgb 30.3 pg (27.0-31.0); Mean Corpuscular Volume 87.9 fL (81.0-99.0); Mean Platelet Volume 10.5 fL (7.4-10.4); Nucleated Red Blood Cells % 0 %; Platelet Count 355 10^3/uL (130-400); Red Blood Cell Count 4.23 10^6/uL (4.20-5.40); White Blood Cell Count 7.3 10^3/uL (4.8-10.8)
[2024-09-13 13:01] LABS: ALT (SGPT) 84 U/L (0-35); AST (SGOT) 54 U/L (14-36); Albumin 3.6 g/dl (3.5-5.0); Alkaline Phosphatase 220 U/L (38-126); Blood Urea Nitrogen 11 mg/dl (7-17); Calcium 8.6 mg/dl (8.4-10.2); Carbon Dioxide 21 mmol/L (22-30); Chloride 105 mmol/L (98-107); Glucose 89 mg/dl (70-99); Potassium 4.1 mmol/L (3.5-5.1); Sodium 136 mmol/L (135-145); Total Bilirubin 0.8 mg/dl (0.2-1.3); Total Protein 6.4 g/dl (6.3-8.2); eGFR > 60.00
[2024-09-13 13:07] LABS: Protein/creatinine Ratio 0.2; Urine Protein 14 mg/dl
[2024-09-13 13:31] VITALS: BP 131/89; BMI 31.6
[2024-09-13] MEDS: ACTIGALL 300 MG PO ×2 (13:31→22:50)
[2024-09-13 14:07] LABS: Amphetamines Negative (Negative); Barbiturates Negative (Negative); Benzodiazepines Negative (Negative); Buprenorphine Negative (Negative); Cocaine Negative (Negative); Marijuana Negative (Negative); Methadone Negative (Negative); Methamphetamines Negative (Negative); Opiates Negative (Negative); Phencyclidine Negative (Negative); Tricyclic Antidepressants Negative (Negative)
[2024-09-13 14:36] LABS: Fentanyl, Urine Negative (Negative)
[2024-09-13] MEDS: TUMS EX (EXTRA STRENGTH) CHEWABLE TABLET 600 MG PO (18:29)
[2024-09-13] MEDS: TYLENOL 1000 MG PO (22:50)
[2024-09-14 02:18] LABS: % Basophils 0.5 % (0-2); % Immature Granulocytes 0.7 % (0-0.5); % Lymphocytes 26.6 % (20.5-51.1); % Monocytes 7.7 % (1.7-9.3); % Neutrophils 62.5 % (42.2-75.2); Absolute Eosinophils 0.2 10^3/uL (0-0.7); Absolute Immature Granulocytes 0.1 10^3/uL (0-0.05); Absolute Monocytes 0.6 10^3/uL (0.1-0.6); Absolute Neutrophils 4.6 10^3/uL (1.4-6.5); Hematocrit 38.9 % (37.0-47.0); Hemoglobin 13.1 g/dL (12.0-16.0); Mean Corp Hgb Conc. 33.7 g/dL (33.0-37.0); Mean Corpuscular Hgb 29.9 pg (27.0-31.0); Mean Corpuscular Volume 88.8 fL (81.0-99.0); Mean Platelet Volume 10.1 fL (7.4-10.4); Nucleated Red Blood Cells % 0 %; Platelet Count 352 10^3/uL (130-400); Red Blood Cell Count 4.38 10^6/uL (4.20-5.40); Red Cell Dist. Width 12.9 % (11.5-14.5); White Blood Cell Count 7.4 10^3/uL (4.8-10.8)
[2024-09-14 02:32] LABS: ALT (SGPT) 80 U/L (0-35); AST (SGOT) 48 U/L (14-36)
[2024-09-14] MEDS: ACTIGALL 300 MG PO (07:44)
[2024-09-16 02:14] LABS: Bile Acids (Cholylglycine) 37 umol/L (0-10)
== END 2024-09-14 14:53 | disposition home or self-care (01) ==
LOC: LDRP 12:04
PROVIDERS: ADMITTING PHYSICIAN Obstetrics & Gynecology
DX: O26.643 Intrahepatic cholestasis of pregnancy, third trimester (principal); K83.1 Obstruction of bile duct; Z3A.35 35 weeks gestation of pregnancy; H53.9 Unspecified visual disturbance; R51.9 Headache, unspecified; Z88.1 Allergy status to other antibiotic agents; Z88.0 Allergy status to penicillin; Z88.8 Allergy status to other drugs, medicaments and biological substances; Z91.410 Personal history of adult physical and sexual abuse; O99.333 Smoking (tobacco) complicating pregnancy, third trimester; F17.290 Nicotine dependence, other tobacco product, uncomplicated
CPT/HCPCS: 80053; 80306; 80307; 82239; 82570; 84156; 84450; 84460; 85025; 99406; G0378

== ENCOUNTER → 2024-09-17 13:56 | Outpatient (REF) | payer OTHER, SELFPAY | LOC: PNTC 13:56 | PROVIDERS: ATTENDING PHYSICIAN Obstetrics & Gynecology | DX: O26.649 Intrahepatic cholestasis of pregnancy, unspecified trimester (principal) | CPT/HCPCS: 59025; 76816 ==

== ENCOUNTER → 2024-09-24 13:41 | Outpatient (REF) | payer OTHER, SELFPAY | LOC: PNTC 13:41 | PROVIDERS: ATTENDING PHYSICIAN Obstetrics & Gynecology | DX: O26.649 Intrahepatic cholestasis of pregnancy, unspecified trimester (principal) | CPT/HCPCS: 59025; 76815 ==

== ENCOUNTER 2024-09-27 11:53 | Inpatient (IN) | payer OTHER, SELFPAY ==
[2024-09-27 12:15] VITALS: BP 125/90; BMI 30.2
[2024-09-27] MEDS: LR 1000 IV (12:15)
[2024-09-27 13:11] LABS: Hematocrit 36.8 % (37.0-47.0); Mean Corp Hgb Conc. 35.3 g/dL (33.0-37.0); Mean Corpuscular Hgb 30.5 pg (27.0-31.0); Mean Corpuscular Volume 86.4 fL (81.0-99.0); Mean Platelet Volume 11.3 fL (7.4-10.4); Platelet Count 282 10^3/uL (130-400); Red Blood Cell Count 4.26 10^6/uL (4.20-5.40); Red Cell Dist. Width 13.6 % (11.5-14.5); White Blood Cell Count 8.4 10^3/uL (4.8-10.8)
[2024-09-27 13:22] LABS: ALT (SGPT) 60 U/L (0-35); AST (SGOT) 47 U/L (14-36); Albumin 3.6 g/dl (3.5-5.0); Alkaline Phosphatase 242 U/L (38-126); Blood Urea Nitrogen 10 mg/dl (7-17); Carbon Dioxide 18 mmol/L (22-30); Chloride 107 mmol/L (98-107); Estimated Creatinine Clearance 118 ml/min; Glucose 72 mg/dl (70-99); Sodium 135 mmol/L (135-145); Total Bilirubin 0.7 mg/dl (0.2-1.3); Total Protein 6.4 g/dl (6.3-8.2); Uric Acid 5.9 mg/dl (2.5-6.2); eGFR > 60.00
[2024-09-27 13:30] LABS: Urine Albumin Trace (Neg - Trace); Urine Bilirubin Negative (Negative); Urine Character Clear (Clear); Urine Color Yellow; Urine Glucose Negative (Negative); Urine Ketone Trace (Negative); Urine Leukocyte 1+ (Negative); Urine Nitrite Negative (Negative); Urine Occult Blood Negative (Negative); Urine Specific Gravity 1.015 (<1.030); Urine Urobilinogen Negative (Neg - 1+); Urine pH 6.5 (5.0-9.0)
[2024-09-27 13:45] LABS: Urine Bacteria Few (Negative); Urine Red Blood Cell 0-2 /HPF (0-2)
[2024-09-27 13:56] LABS: Amphetamines Negative (Negative); Barbiturates Negative (Negative); Benzodiazepines Negative (Negative); Buprenorphine Negative (Negative); Cocaine Negative (Negative); Marijuana Negative (Negative); Methadone Negative (Negative); Methamphetamines Negative (Negative); Opiates Negative (Negative); Phencyclidine Negative (Negative); Tricyclic Antidepressants Negative (Negative)
[2024-09-27] MEDS: BICITRA 30 ML PO (14:17)
[2024-09-27] MEDS: TYLENOL 1000 MG PO (14:17)
[2024-09-27] MEDS: CLEOCIN 50 IV (14:18)
[2024-09-27] MEDS: GENTAMICIN 59.075 MG IV (14:19)
[2024-09-27 14:22] LABS: Fentanyl, Urine Negative (Negative)
[2024-09-27 14:27] LABS: Protein/creatinine Ratio 0.1; Urine Protein 16 mg/dl
[2024-09-27 16:54] LABS: Hematocrit 31.6 % (37.0-47.0); Hemoglobin 10.7 g/dL (12.0-16.0)
[2024-09-27] MEDS: TORADOL 15 MG IV (21:50)
[2024-09-27 23:15] LABS: Hematocrit 36.5 % (37.0-47.0); Hemoglobin 12.6 g/dL (12.0-16.0)
[2024-09-28] MEDS: TORADOL 15 MG IV ×3 (04:08→16:10)
[2024-09-28 06:54] LABS: Hematocrit 33.8 % (37.0-47.0); Hemoglobin 11.4 g/dL (12.0-16.0); Mean Corp Hgb Conc. 33.7 g/dL (33.0-37.0); Mean Corpuscular Hgb 29.6 pg (27.0-31.0); Mean Corpuscular Volume 87.8 fL (81.0-99.0); Mean Platelet Volume 10.8 fL (7.4-10.4); Platelet Count 285 10^3/uL (130-400); Red Blood Cell Count 3.85 10^6/uL (4.20-5.40); Red Cell Dist. Width 13.8 % (11.5-14.5); White Blood Cell Count 13.6 10^3/uL (4.8-10.8)
[2024-09-28] MEDS: PRENATAL PLUS PO (10:04)
--- NOTE | 2024-09-28 14:33 | CM ---
Met with new mother Melissa at bedside
Confirmed listed address. Living in home are her parents Kesha and Indra Wolf
FOB is not involved per mom Melissa
Melissa reports she has named her Edgardo Wolf (AJ)
She plans to breast and bottle feed
Mom reports she has supplies at home for including bassinet, car seat, clothing and diapers
She reports she has support from her parents
[employer] planned for is ELLIS Sanchez
CM received consult for Mom's + toxicology screen - Oxycodone
Discussed with Mom - she reports she was prescribed medication and has a prescription for it
Informed that CM is required to notify [facility] of positive screen. Mom became upset and loud. Stating she was given a prescription
Importance of 's safety discussed. Mom aware will be monitored for up to 5 days
Called Child Line - , spoke with Mariah #[phone]
Report made.
Received call from Bharati at [facility] - - plan is to see Mother Melissa on Monday. Infant is not to be discharged until [facility] determine plan
Plan - discharge is on hold until cleared by [facility]
RN aware
[2024-09-28] MEDS: TYLENOL 650 MG PO (20:22)
[2024-09-28] MEDS: MOTRIN 600 MG PO (22:22)
[2024-09-29] MEDS: TYLENOL 650 MG PO ×5 (01:51→21:41)
[2024-09-29] MEDS: PRENATAL PLUS 1 TABLET PO (07:52)
[2024-09-29] MEDS: MOTRIN 600 MG PO ×3 (07:53→20:00)
[2024-09-29] MEDS: SENOKOT-S 1 TABLET PO (08:45)
[2024-09-29] MEDS: MYLICON 80 MG PO (08:46)
[2024-09-30] MEDS: PERCOCET 5/325 2 TABLET PO (01:42)
[2024-09-30] MEDS: PERCOCET 5/325 1 TABLET PO ×2 (08:04→13:48)
[2024-09-30] MEDS: SENOKOT-S 1 TABLET PO (08:04)
[2024-09-30] MEDS: MYLICON 80 MG PO ×2 (08:05→13:47)
[2024-09-30] MEDS: PRENATAL PLUS 1 TABLET PO (08:05)
[2024-09-30] MEDS: MOTRIN 600 MG PO ×2 (08:05→13:47)
--- NOTE | 2024-09-30 11:46 | CM ---
Received call from Calista from [facility]
Per Calista planning to see Mom Melissa and today at hospital
Reports will update CM after speaking with Mom Melissa to discuss discharge plan
Plan - TBD pending [facility] evaluation/recommendation
--- NOTE | 2024-09-30 12:48 | W.DS.TRANS ---
DC Summary - Appeals Assistant
-
Discharge Instructions:
Discharge Diagnosis/Procedures rcs, bilat salpingectomies
Diet No restrictions
Instructions:
Stand-Alone Forms: LDRP Delivery
Changes to Home Medications: No
Discharge Medications:
DC Medications w/original date entered in [employer]
prenat.vits,meaghan,vof-qlco-yexcf 1 tab PO DAILY Supplement 08/27/24
ibuprofen 600 mg tablet 600 mg PO Q6HPRN PRN cramps #90 tabs 09/30/24
oxycodone-acetaminophen 5 mg-325 mg tablet 1 tab PO Q4HPRN PRN moderate pain #4 tabs 09/30/24
Home Medication Changes
Pending Results: No
Total time spent discharging patient (in min): 20
[2024-10-01 11:40] LABS: Syphilis/T. pallidum Ab Reflex Negative (Negative)
== END 2024-09-30 15:11 | disposition home or self-care (01) | DRG 783 ==
LOC: LDRP 11:53
PROVIDERS: Specialist; ADMITTING PHYSICIAN Obstetrics & Gynecology
PROC: 0UT70ZZ Resection of Bilateral Fallopian Tubes, Open Approach (ICD-10-PCS; 2024-09-27)
PROC: 10D00Z1 Extraction of Products of Conception, Low, Open Approach (ICD-10-PCS; 2024-09-27)
DX: O34.219 Maternal care for unspecified type scar from previous cesarean delivery (principal); O99.42 Diseases of the circulatory system complicating childbirth; O26.62 Liver and biliary tract disorders in childbirth; O26.643 Intrahepatic cholestasis of pregnancy, third trimester; Z3A.37 37 weeks gestation of pregnancy; Z37.0 Single live birth; I67.1 Cerebral aneurysm, nonruptured; O99.334 Smoking (tobacco) complicating childbirth; O12.14 Gestational proteinuria, complicating childbirth; E78.79 Other disorders of bile acid and cholesterol metabolism; K76.89 Other specified diseases of liver; F17.290 Nicotine dependence, other tobacco product, uncomplicated; K74.60 Unspecified cirrhosis of liver; O69.81X0 Labor and delivery complicated by cord around neck, without compression, not applicable or unspecified; O90.89 Other complications of the puerperium, not elsewhere classified; I95.9 Hypotension, unspecified; Z30.2 Encounter for sterilization; Z88.0 Allergy status to penicillin; Z64.1 Problems related to multiparity
CPT/HCPCS: 88302; 88307; 58605; 80053; 80306; 80307; 81003; 81015; 82570; 84156; 84550; 85014; 85018; 85027; 86780; 86850; 86900; 86901